=== PATIENT | male | born 1960 | race African-American/Black ===

== ENCOUNTER 2019-03-25 15:35 | Emergency (ER) | payer OTHER, SELFPAY ==
[2019-03-25 15:48] VITALS: BP 150/72; PULSE 72; RESP 18; TEMP 37.2; O2SAT 95; BMI 26.3
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
[2019-03-25] MEDS: IBUPROFEN 400 MG TABLET 800 MG PO (16:36)
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
[2019-03-25 18:09] VITALS: BP 136/84; PULSE 63; O2SAT 99
== END 2019-03-25 18:17 | disposition home or self-care (01) ==
PROVIDERS: Emergency Provider Nurse Practitioner Family; PCP Internal Medicine
DX: S40.021A Contusion of right upper arm, initial encounter (principal); V49.40XA Driver injured in collision with unspecified motor vehicles in traffic accident, initial encounter
CPT/HCPCS: 71046; 73090; 99282; 99283